=== PATIENT | male | born 1945 | race Caucasian/White ===

== ENCOUNTER → 2016-11-18 | Outpatient (CLI) | payer OTHER ==
--- NOTE | 2016-11-18 17:20 | RADRPT ---
PROCEDURE: Right knee radiographs. CLINICAL INDICATION: Right knee pain. TECHNIQUE: Four views. Weight bearing. Frontal, lateral, oblique, and patellar view. COMPARISON: 06/07/2016. FINDINGS: There is no fracture or dislocation. Vascular calcifications are present consistent with atherosclerosis. There are degenerative changes with osteophytes arising from all 3 joint compartment margins. There is no lytic or blastic lesion. There is no radiopaque foreign body. IMPRESSION: 1. Atherosclerosis. 2. Mild degenerative change. 3. No change from 06/07/2016. RPTAT: QQ .Rodrigo Stanford MD, MD Date Time Electronically viewed and signed by .Rodrigo Stanford MD, MD on 11/18/2016 17:20 .R/
== END | disposition home or self-care (01) ==
LOC: HKI 10:06
PROVIDERS: ATTEND Orthopaedic Surgery
DX: M25.562 Pain in left knee (principal)
CPT/HCPCS: 73564; G0463

== ENCOUNTER → 2016-12-09 | Outpatient (CLI) | payer OTHER | END | disposition home or self-care (01) | LOC: HKI 10:07 | PROVIDERS: ATTEND Orthopaedic Surgery | DX: M25.562 Pain in left knee (principal); S83.232A Complex tear of medial meniscus, current injury, left knee, initial encounter | CPT/HCPCS: G0463 ==

== ENCOUNTER → 2016-12-27 | Outpatient (CLI) | payer OTHER ==
[~2016-12-27] MED LIST: ALLO100T PO; FLUT16SP17 NASAL; FOLI-49 PO; LEVO75TA65 PO
== END | disposition home or self-care (01) ==
LOC: HKI 13:35
PROVIDERS: ATTEND Orthopaedic Surgery
DX: Z01.818 Encounter for other preprocedural examination (principal); S83.232A Complex tear of medial meniscus, current injury, left knee, initial encounter; X58.XXXA Exposure to other specified factors, initial encounter; M25.562 Pain in left knee
CPT/HCPCS: G0463

== ENCOUNTER 2016-12-31 07:41 | Day surgery (SDC) | payer OTHER ==
[~2016-12-31] VITALS: Ht 182.9 cm; Wt 90.8 kg
[2016-12-31] VITALS (15 sets, daily range): BP systolic 135–147; BP diastolic 70–82; PULSE 58–78; RESP 14–20; Ht 182.9 cm; Wt 90.8 kg
[~2016-12-31 07:41] MED LIST changes: -ALLO100T PO; -FLUT16SP17 NASAL; -FOLI-49 PO; -LEVO75TA65 PO; +LIDOCAINE 2% (SDV) 5 ML INJ ONE
[2016-12-31] MEDS ORDERED: oxyCODONE (CR) 10 MG TAB [oxyCONTIN] X1 DOSE PO ONE (08:00)
[2016-12-31] MEDS ORDERED: LACTATED RINGER'S 1,000 ML IV SCH (08:00)
[2016-12-31] MEDS ORDERED: traMADOL 50 MG TAB X 1 DOSE PO ONE (08:00)
[2016-12-31] MEDS ORDERED: CELECOXIB 400 MG PO X1 DOSE PO ONE (08:00)
[2016-12-31] MEDS ORDERED: VANCOMYCIN 1 GM/NS 250 ML X1 BEFORE INCISION IVPB ONE (08:00)
[2016-12-31] MEDS ORDERED: PREGABALIN 300 MG PO X1 PO ONE (08:00)
[2016-12-31] MEDS ORDERED: ALLO100T PO (08:39)
[2016-12-31] MEDS ORDERED: FOLI-49 PO (08:39)
[2016-12-31] MEDS ORDERED: LEVO75TA65 PO (08:39)
[2016-12-31] MEDS ORDERED: FLUT16SP17 NASAL (08:40)
[2016-12-31] MEDS ORDERED: PROPOFOL 20 ML ONE (08:45)
[2016-12-31] MEDS ORDERED: GLYCOPYRROLATE 0.4 MG INJ ONE (08:46)
[2016-12-31] MEDS ORDERED: FENTAnyl 50 MCG/ML VIAL ONE (08:46)
[2016-12-31] MEDS ORDERED: ROCURONIUM 50 MG INJ ONE (08:46)
[2016-12-31] MEDS ORDERED: MIDAZOLAM 1 MG/ML 2 ML INJ ONE (08:46)
[2016-12-31] MEDS ORDERED: NEOSTIGMINE 3 MG/3 ML SYRINGE ONE (08:46)
[2016-12-31] MEDS ORDERED: CEFAZOLIN 1 GM INJ ONE (08:46)
[2016-12-31] MEDS ORDERED: DEXAMETHASONE 4 MG/ML 1 ML INJ ONE (08:46)
[2016-12-31] MEDS ORDERED: ONDANSETRON 4 MG INJ ONE (08:46)
[2016-12-31] MEDS ORDERED: KETOROLAC 30 MG INJ ONE ×2 (09:55→10:46)
[2016-12-31] MEDS ORDERED: ROPIVACAINE 0.5 % 30 ML VIAL ONE ×2 (09:55→10:46)
[2016-12-31] MEDS ORDERED: morphine SULFATE/PF (10 MG/10 ML) INJ ONE ×2 (09:55→10:47)
[2016-12-31] MEDS ORDERED: LIDOCAINE 1%/EPI 30 ML INJ ONE ×2 (09:55→10:46)
[2016-12-31] MEDS ORDERED: TRIMETHOBENZAMIDE 100 MG/ML VIAL IM PRN (10:30)
[2016-12-31] MEDS ORDERED: ONDANSETRON 4 MG INJ IV PRN (10:30)
[2016-12-31] MEDS ORDERED: DIPHENHYDRAMINE 50 MG INJ IV PRN (10:30)
[2016-12-31] MEDS ORDERED: MEPERIDINE 25 MG INJ IV PRN (10:30)
[2016-12-31] MEDS ORDERED: FENTAnyl 50 MCG/ML VIAL IV PRN ×3 (10:30)
[2016-12-31] MEDS ORDERED: EPHEDrine SULFATE 50 MG/5 ML SYG IV PRN (10:30)
[2016-12-31] MEDS ORDERED: hydrALAzine 20 MG INJ IV PRN (10:30)
[2016-12-31] MEDS ORDERED: MIDAZOLAM 1 MG/ML 2 ML INJ IV PRN (10:30)
[2016-12-31] MEDS ORDERED: LABETALOL HCL 20MG INJ IV PRN (10:30)
[2016-12-31] MEDS ORDERED: HYDROmorphONE (0.2 MG/ML) 10ML SYG IV PRN ×3 (10:30)
--- NOTE | 2016-12-31 10:32 | HPN ---
Date/Time of Note Date/Time of Note DATE: 12/31/16 TIME: 10:32 Interval H&P Admission Note Pt. seen H&P reviewed: No system changes No change from H&P on 12/27/16 by RONALD Baumann MD Dec 31, 2016 10:32
[2016-12-31] MEDS ORDERED: KETOROLAC 30 MG INJ INJ ONE (11:55)
--- NOTE | 2016-12-31 12:27 | OPR ---
Date/Time of Note Date/Time of Note DATE: 12/31/16 TIME: 12:26 Operative Report Free Text/Dictation Dictation # [id number] Procedure Date: Dec 31, 2016 Preoperative Diagnosis Left Knee PHMM Tear Postoperative Diagnosis Same Operation Performed Left Knee A/S and Partial MM Surgeon: RONALD LIMON MD engineer third assistant: DAYTON PRESLEY PA-C Anesthesia: general Anesthesiologist: Sarabjit Zamora M.D. Tourniquet Time: 0 minutes Estimated Blood Loss: minimal Specimens None Tubes/Drains None Complications: None Pt Condition Post Procedure: stable Disposition: PACU RONALD LIMON MD Dec 31, 2016 12:27
--- NOTE | 2016-12-31 12:47 | OPR ---
DATE OF OPERATION: 12/31/2016 PREOPERATIVE DIAGNOSIS: Left knee medial meniscus tear. POSTOPERATIVE DIAGNOSIS: Left knee medial meniscus tear. OPERATION PERFORMED: Left knee arthroscopy, partial medial meniscectomy. SURGEON: Ronald Barnard MD FLEXOGRAPHIC PRESS PLATE SETTER: ENID Ferrer ANESTHESIA: General endotracheal intubation. ANESTHESIOLOGIST: Dr. Zamora TOURNIQUET TIME: 0 minutes. ESTIMATED BLOOD LOSS: Scant. INTRAVENOUS FLUIDS: 1 liter crystalloid. SPECIMENS: None. DRAINS: None. COMPLICATIONS: None. DISPOSITION: The patient tolerated the procedure well and was taken to the recovery room in stable condition. INDICATIONS: The patient is a 71-year-old gentleman who has had pain along the medial aspect of the left knee. He had an MRI demonstrating a medial meniscus tear. I felt he would benefit from a kne e arthroscopy and partial medial meniscectomy. The risks, benefits, and alternatives of the procedu re were explained in detail to the patient. I explained the risks to include, but not be limited to , bleeding, infection, pain, stiffness, neurovascular injury with possible numbness, weakness, and/o r paralysis anywhere from the knee down to the toes, fracture, ligamentous injury, need for addition al future surgery including possible conversion to a total knee arthroplasty, wound healing problems , blood clots, pulmonary embolism, and anesthetic complications such as heart attack, stroke, GI ble ed, pneumonia, and/or . Ample time was allowed for the patient to ask questions, all of which were addressed and answered. The patient understood the risks involved and wished to proceed. Info rmed consent was signed prior to the procedure. DESCRIPTION OF PROCEDURE: The left knee was initialed with a marking pen in the preoperative holdin g area to identify the correct operative site. The patient was then brought to the operating room a nd transferred from the [facility] to the operating table where he was anesthetized and intubat ed. Time out was performed to confirm the left side was the correct operative site. He was given 1 gram of vancomycin and 1 gram of intravenous Ancef within 1 hour prior to incision. The tourniquet was placed in the left proximal thigh. The superolateral aspect of the left knee was prepped with Betadine and then injected with 30 mL of 0.5% ropivacaine into the knee joint. The entire left knee and lower extremity were prepped and draped in usual sterile fashion. Standard arthroscopic portal incisions were made, one inferolateral and one inferomedial. The arthroscope w as introduced into the inferolateral portal, and the arthroscopy initiated. The suprapatellar pouch was free of loose bodies and synovitis. The medial and lateral gutters were inspected and free of loose bodies and synovitis. The medial compartment was inspected. There was an extensive tear of t he posterior horn of the medial meniscus extending from the posterior horn to the body. This was de brided back to a stable edge with a combination of the biters, nicolas and Arthrocare wand. It was probed and noted to be stable. 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 The medial tibial plateau looked healthy with no degenerative changes. The inner trochlear notch was inspected and the ACL and PCL were in normal position, no evidence of tearing. The lateral com partment was inspected. The lateral meniscus was intact. The lateral femoral condyle and lateral t ibial plateau looked healthy with no degenerative changes. At this point, the arthroscopy was compl eted. The knee was irrigated through the arthroscope until the egress of fluid was free of meniscal fragments and blood. The instruments were removed. The knee then injected with a mixture of 0.5% ropivacaine, 4 mg Duramorph and 30 mg Toradol. The portal incisions were closed with interrupted 3- 0 Monocryl and the 3-0 Prolene in a vertical mattress fashion. The skin edges were sealed with Derm abond. The wounds were covered with Adaptic, 4x4's and wrapped in sterile cast padding and Clifford wrap . The patient was awakened, extubated, and taken to the recovery room in stable condition. Dictated By: RONALD LYNN/PRESTON Conf#: [id number] DID#: [id number]
[2016-12-31] MEDS ORDERED: METOCLOPRAMIDE 10 MG INJ IV ONE (15:00)
[2017-01-01] MEDS ORDERED: LEVOTHYROXINE 75 MCG TAB PO SCH (07:00)
[2017-01-01] MEDS ORDERED: FLUTICASONE 0.05% 16 GM NAS SPRAY NASAL SCH (09:00)
[2017-01-01] MEDS ORDERED: FOLIC ACID 1 MG TAB PO SCH (09:00)
[2017-01-01] MEDS ORDERED: ALLOPURINOL 100 MG TAB PO SCH (09:00)
== END 2016-12-31 17:00 | disposition home or self-care (01) ==
LOC: SDS 07:41
PROVIDERS: ATTEND Orthopaedic Surgery
DX: M23.222 Derangement of posterior horn of medial meniscus due to old tear or injury, left knee (principal); E78.5 Hyperlipidemia, unspecified; E03.9 Hypothyroidism, unspecified; Z85.46 Personal history of malignant neoplasm of prostate
CPT/HCPCS: 29881; 87081; J1100; J1885; J2250; J2274; J2405; J2710; J2765; J2795; J3010; J3370; J0690

== ENCOUNTER → 2017-01-08 | Outpatient (CLI) | payer MEDICARE, OTHER ==
[~2017-01-08] MED LIST changes: +ALLO100T PO; +FLUT16SP17 NASAL; +FOLI-49 PO; +LEVO75TA65 PO; -LIDOCAINE 2% (SDV) 5 ML INJ ONE
--- NOTE | 2017-01-08 13:33 | HKNOTE ---
DATE OF SERVICE: 01/08/2017 INTERVAL HISTORY: The patient presents today for his first postoperative evaluation on his left jamie hanley. He is 8 days status post left knee arthroscopy and partial medial meniscectomy. He is doing sat isfactory overall, but is having some discomfort to his left knee. He denies any fevers or chills. He has not begun physical therapy yet. He is having some generalized soreness to the knee, but den ies any recurrent injury. He presents today for evaluation. PHYSICAL EXAMINATION: GENERAL: Today, he is alert and oriented x4 and in no acute distress. EXTREMITIES: Exam of the left knee demonstrates a mild effusion. The incisions are clean, dry and well healed. Sutures are in place. Range of motion is 5 to 110 degrees. Varus and valgus forces a re stable. There is no erythema or warmth noted. Homans sign is negative. Compartments are soft. He is neurovascularly intact distally. ASSESSMENT: Eight days status post left knee arthroscopy and partial medial meniscectomy. PLAN: 1. The sutures were removed today and Steri-Strips were applied. 2. He is to begin outpatient physical therapy which will increase his range of motion and likely de crease his pain. He does have some soreness which I do feel will resolve with time and with physica l therapy. 3. He is to take the pain medicine as needed. 4. We will see him back in 4 weeks for repeat evaluation. Dictated By: DAYTON ROSSI for RONALD CARRANZA/PRESTON Conf#: [id number] DID#: [id number]
== END | disposition home or self-care (01) ==
LOC: HKI 10:12
PROVIDERS: ATTEND Orthopaedic Surgery
DX: Z47.89 Encounter for other orthopedic aftercare (principal); S83.242D Other tear of medial meniscus, current injury, left knee, subsequent encounter

== ENCOUNTER → 2017-02-05 | Outpatient (CLI) | payer MEDICARE, BC | END | disposition home or self-care (01) | LOC: HKI 10:23 | PROVIDERS: ATTEND Orthopaedic Surgery | DX: Z47.89 Encounter for other orthopedic aftercare (principal); S83.232D Complex tear of medial meniscus, current injury, left knee, subsequent encounter ==

== ENCOUNTER → 2017-03-19 | Outpatient (CLI) | payer MEDICARE, BC | END | disposition home or self-care (01) | LOC: HKI 09:56 | PROVIDERS: ATTEND Orthopaedic Surgery | DX: Z47.89 Encounter for other orthopedic aftercare (principal); S83.232D Complex tear of medial meniscus, current injury, left knee, subsequent encounter; X58.XXXD Exposure to other specified factors, subsequent encounter ==